=== PATIENT | male | born 1985 | race Caucasian/White ===

== ENCOUNTER 2016-09-14 16:12 | Emergency (ER) | payer OTHER ==
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
[2016-09-14] MEDS ORDERED: NO MEDICATIONS (16:14)
== END 2016-09-14 17:39 | disposition home or self-care (01) ==
LOC: SED 16:12
DX: S46.911A Strain of unspecified muscle, fascia and tendon at shoulder and upper arm level, right arm, initial encounter (principal); V43.92XA Unspecified car occupant injured in collision with other type car in traffic accident, initial encounter
CPT/HCPCS: 72040; 73010; 99284